=== PATIENT | male | born 1975 | race Caucasian/White ===

== ENCOUNTER 2017-07-05 18:13 | Emergency (ER) | payer MEDICARE, OTHER ==
[~2017-07-05] VITALS: Ht 188 cm; Wt 100.0 kg
[~2017-07-05 18:13] MED LIST: A+D PREVENT TOP; AMIKACIN IV; AMOXICILLIN875 MG PO; ATIVAN0.5 MG PO; ATIVAN1 M1 PO; ATIVAN1 MG PO; AUGMENTIN875 MG PO; BACLOFEN10 MG PO; BACTRIM DS1 TAB OR; BACTRIM DS1 TAB PO; BUSPIRONE10 MG PO; CEFEPIME IV; CIPRO XR500 MG PO; CIPRO500 MG OR; CIPRO500 MG PO; CIPROFLOXACN500 MG PO; DILAUDID 2MG2 MG/TAB PO; DILAUDID2 MG OR; DILAUDID2 MG PO; DOCUSATE RE; DULCOLAX10 MG RE; FLUCONAZOLE100 MG PO; FLUTICASONE50 MCG; HURRICAINE201 TOP; KEFLEX500 MG PO; KEPPRA250 M1 PO; KEPPRA500 MG PO; KLONOPIN1 MG PO; LANTISEPTIC; LANTISEPTIC EX; LORAZEPAM0.5 MG PO; LORTAB 10 PO; LORTAB 1010 MG PO; LORTAB 5 OR; METHOCARBAM750 MG PO; METHOCARBAMOL750 MG OR; METHOCARBAMOL750 MG PO; MIRTAZAPINE15 MG PO; MIRTAZAPINE45 M1 PO; NAPROSYN375 MG PO; NYSTATIN TOP; NYSTATIN100000 M1 PO; OMEPRAZOLE20 MG PO; OXYBUTYNIN5 M1 PO; OXYCODONE HCL5 MG PO; PYRIDIUM200 MG PO; ROBAXIN-750750 MG OR; ROBAXIN250 MG PO; SILVADENE1 % EX; STOOL SOFTEN1 TAB OR; TEMAZEPAM30 MG PO; TETRACYCLINE500 MG OR; TETRACYCLINE500 MG PO; THERACRAN650 MG PO; THERALITH XR PO; UROCIT-K 15 PO; VALIUM5 MG PO; VESICARE10 MG PO; VESICARE5 MG PO; XIFAXAN550 MG PO; ZANAFLEX4 M2 OR; ZANAFLEX4 MG OR; ZOLPIDEM10 M1 PO; ZOLPIDEM10 MG PO; [UNRECOGNIZED DRUG - OTHER]; [UNRECOGNIZED DRUG - OTHER] EX; [UNRECOGNIZED DRUG - REMARK]; mirtazapine PO
[2017-07-05 19:34] VITALS: BP 132/80
== END 2017-07-05 19:36 | disposition home or self-care (01) ==
LOC: ED 18:13
PROC: 0T2BX0Z Change Drainage Device in Bladder, External Approach (ICD-10-PCS; principal; 2017-07-05)
DX: T83.028A Displacement of other urinary catheter, initial encounter (principal)

== ENCOUNTER 2017-09-14 14:09 | Emergency (ER) | payer MEDICARE, OTHER ==
[~2017-09-14] VITALS: Ht 188 cm; Wt 80.0 kg
[2017-09-14 15:12] LABS: HEMATOCRIT 36.6 % (39.0-50.0); HEMOGLOBIN 11.9 g/dl (14.0-18.0); IMMATURE GRANULOCYTES 0.2 % (0.0-1.0); MEAN CELL VOLUME 85.5 fL CALC (80.0-100.0); MEAN CORPUSCULAR HGB 27.8 pG CALC (26.0-32.0); MEAN CORPUSCULAR HGB CONC 32.5 g/L CALC (32.0-36.0); NEUT# 11.13 thou/uL (1.82-7.42); RED BLOOD COUNT 4.28 mill/uL (4.70-6.10); RED CELL DISTRI WIDTH 16.6 % (11.5-15.5)
[2017-09-14 15:22] LABS: URINE BILIRUBIN - DIPSTICK NEGATIVE (NEGATIVE); URINE BLOOD DIPSTICK MODERATE (NEGATIVE); URINE COLOR YELLOW; URINE GLUCOSE - DIPSTICK NEGATIVE (NEGATIVE); URINE KETONE NEGATIVE (NEGATIVE); URINE PROTEIN - DIPSTICK 30 mg/dL (NEG-TRACE); URINE SPECIFIC GRAVITY 1.015
[2017-09-14 15:23] LABS: URINE LEUK ESTERASE MODERATE (NEGATIVE); URINE NITRITE - DIPSTICK POSITIVE (Negative)
[2017-09-14 15:24] LABS: URINE CLARITY CLOUDY
[2017-09-14 15:35] LABS: ALBUMIN 3.8 g/dL (3.2-5.0); ALKALINE PHOSPHATASE 178 u/l (38-126); ANION GAP 17 (6-22 (CALC)); BILIRUBIN, TOTAL 0.6 mg/dL (0.0-1.4); BUN 17 mg/dL (9-20); BUN/CREATININE RATIO 15 (12-20 (CALC)); CARBON DIOXIDE 23 mmol/l (22-30); CHLORIDE 106 mmol/l (95-108); CREATININE 1.2 mg/dL (0.7-1.3); GFR > 60 ML/MIN (>=60 (CALC)); GFR FOR AFR.AMER. > 60 ML/MIN (>=60 (CALC)); GLUCOSE 120 mg/dL (75-110); SGOT/AST 18 u/l (17-59); SGPT/ALT 21 u/l (21-72); SODIUM 140 mmol/l (137-146); TOTAL PROTEIN 7.2 g/dL (6.3-8.2)
[2017-09-14 16:14] LABS: URINE BACTERIA MANY hpf; URINE RBC TNTC RBC/hpf (0-5); URINE SQUAMOUS EPITHELIAL CELL FEW EPI/hpf (0-FEW); URINE WBC TNTC WBC/hpf (0-5)
[2017-09-14 16:35] VITALS: BP 98/64
[2017-09-14] MEDS ORDERED: LEVAQUIN750 MG PO (16:35)
== END 2017-09-14 16:44 | disposition home or self-care (01) ==
LOC: ED 14:09
PROVIDERS: Emergency Medicine
DX: S46.812A Strain of other muscles, fascia and tendons at shoulder and upper arm level, left arm, initial encounter (principal); N39.0 Urinary tract infection, site not specified; G82.50 Quadriplegia, unspecified; S14.109S Unspecified injury at unspecified level of cervical spinal cord, sequela; V89.2XXS Person injured in unspecified motor-vehicle accident, traffic, sequela; X58.XXXA Exposure to other specified factors, initial encounter; Z96.0 Presence of urogenital implants; B96.20 Unspecified Escherichia coli [E. coli] as the cause of diseases classified elsewhere; Z16.12 Extended spectrum beta lactamase (ESBL) resistance

== ENCOUNTER 2018-02-27 06:12 | Day surgery (SDC) | payer MEDICARE, OTHER ==
[~2018-02-27] VITALS: Ht 188 cm; Wt 70.3 kg
[~2018-02-27 06:12] MED LIST changes: +LEVAQUIN750 MG PO; +OMEPRAZOLE20 M1 PO; +RESTORIL7.5 MG PO
[2018-02-27] MEDS ORDERED: OXCARBAZEPINE150 MG PO (06:42)
[2018-02-27] MEDS ORDERED: BACTRIM DS1 TAB PO (10:44)
[2018-02-27] MEDS ORDERED: TRAMADOL HYDROC50 MG PO (10:44)
[2018-02-27] MEDS ORDERED: TAMSULOSIN0.4 MG PO (10:44)
[2018-02-27 12:18] VITALS: BP 138/88
== END 2018-02-27 12:10 | disposition home or self-care (01) ==
LOC: ORM 06:12
PROVIDERS: ATTEND Urology
PROC: 0TF4XZZ Fragmentation in Left Kidney Pelvis, External Approach (ICD-10-PCS; principal; 2018-02-27)
PROC: 0TJB8ZZ Inspection of Bladder, Via Natural or Artificial Opening Endoscopic (ICD-10-PCS; 2018-02-27)
PROC: BT1F1ZZ Fluoroscopy of Left Kidney, Ureter and Bladder using Low Osmolar Contrast (ICD-10-PCS; 2018-02-27)
PROC: 0T2BX0Z Change Drainage Device in Bladder, External Approach (ICD-10-PCS; 2018-02-27)
DX: N20.0 Calculus of kidney (principal); N32.3 Diverticulum of bladder; K21.9 Gastro-esophageal reflux disease without esophagitis; R33.9 Retention of urine, unspecified; G82.20 Paraplegia, unspecified; S14.106S Unspecified injury at C6 level of cervical spinal cord, sequela; X58.XXXS Exposure to other specified factors, sequela; Z90.5 Acquired absence of kidney; Z87.442 Personal history of urinary calculi; Z87.440 Personal history of urinary (tract) infections; Z96.0 Presence of urogenital implants; Z99.3 Dependence on wheelchair
CPT/HCPCS: Q9967

== ENCOUNTER → 2018-07-10 | Outpatient (REF) | payer MEDICARE, OTHER ==
[~2018-07-10] MED LIST changes: +OXCARBAZEPINE150 MG PO; +TAMSULOSIN0.4 MG PO; +TRAMADOL HYDROC50 MG PO
[2018-07-10 11:41] LABS: HEMATOCRIT 39.6 % (39.0-50.0); HEMOGLOBIN 12.8 g/dl (14.0-18.0); MEAN CELL VOLUME 83.9 fL CALC (80.0-100.0); MEAN CORPUSCULAR HGB 27.1 pG CALC (26.0-32.0); MEAN CORPUSCULAR HGB CONC 32.3 g/L CALC (32.0-36.0); RED BLOOD COUNT 4.72 mill/uL (4.70-6.10); RED CELL DISTRI WIDTH 14.8 % (11.5-15.5)
[2018-07-10 11:45] LABS: URINE BILIRUBIN - DIPSTICK NEGATIVE (NEGATIVE); URINE BLOOD DIPSTICK LARGE (NEGATIVE); URINE CLARITY CLOUDY; URINE COLOR YELLOW; URINE GLUCOSE - DIPSTICK NEGATIVE (NEGATIVE); URINE KETONE Negative (NEGATIVE); URINE LEUK ESTERASE LARGE (Negative); URINE NITRITE - DIPSTICK POSITIVE (Negative); URINE PH 6.5 (4.5-8.0); URINE PROTEIN - DIPSTICK TRACE mg/dL (NEG-TRACE); URINE SPECIFIC GRAVITY 1.025; URINE UROBILINOGEN - DIPSTICK 0.2 E.U./dL (0.2); URINE WBC TNTC WBC/hpf (0-5)
[2018-07-10 11:46] LABS: URINE BACTERIA MODERATE hpf; URINE EPITHELIAL CELLS RARE EPI/hpf (0-FEW)
[2018-07-10 12:20] LABS: ALBUMIN 3.6 g/dL (3.2-5.0); ALKALINE PHOSPHATASE 162 u/l (38-126); ANION GAP 14 (6-22 (CALC)); BILIRUBIN, TOTAL 0.7 mg/dL (0.0-1.4); BUN 27 mg/dL (9-20); BUN/CREATININE RATIO 22 (12-20 (CALC)); CALCULATED LDLCHOLESTEROL 117 mg/dL (62-129 (CALC)); CARBON DIOXIDE 24 mmol/l (22-30); CHLORIDE 108 mmol/l (95-108); CHOLESTEROL HDL RATIO 8.6 (<4.4 (CALC)); CREATININE 1.2 mg/dL (0.7-1.3); GFR > 60 ML/MIN (>=60 (CALC)); GFR FOR AFR.AMER. > 60 ML/MIN (>=60 (CALC)); HDL CHOLESTEROL 26 mg/dL (>=40); POTASSIUM 4.8 mmol/l (3.5-5.1); SGOT/AST 20 u/l (17-59); SODIUM 141 mmol/l (137-146); TOTAL CHOLESTEROL 221 mg/dl (0-199); TOTAL PROTEIN 7.1 g/dL (6.3-8.2); TOTAL TRIGLYCERIDES 391 mg/dl (30-149); VLDL CHOLESTROL 78 mg/dl (5-56 (CALC))
[2018-07-10 12:49] LABS: TSH, 3RD GENERATION 2.06 uIU/mL (0.47 - 4.68)
== END | disposition home or self-care (01) ==
LOC: LABSPEC 11:35
PROVIDERS: ATTEND Internal Medicine
DX: N39.0 Urinary tract infection, site not specified (principal); E78.1 Pure hyperglyceridemia; F32.9 Major depressive disorder, single episode, unspecified; B96.1 Klebsiella pneumoniae [K. pneumoniae] as the cause of diseases classified elsewhere

== ENCOUNTER 2019-07-31 05:58 | Day surgery (SDC) | payer MEDICARE, OTHER ==
[~2019-07-31 05:58] MED LIST changes: +AMITRIPTYLIN25 MG PO
[2019-07-31 09:47] VITALS: BP 153/89
== END 2019-07-31 10:00 | disposition home or self-care (01) ==
LOC: ORM 05:58
PROVIDERS: ATTEND Urology
PROC: 0TBB8ZX Excision of Bladder, Via Natural or Artificial Opening Endoscopic, Diagnostic (ICD-10-PCS; principal; 2019-07-31)
DX: N31.8 Other neuromuscular dysfunction of bladder (principal); G82.50 Quadriplegia, unspecified; S14.109S Unspecified injury at unspecified level of cervical spinal cord, sequela; V89.2XXS Person injured in unspecified motor-vehicle accident, traffic, sequela; F17.210 Nicotine dependence, cigarettes, uncomplicated; N32.89 Other specified disorders of bladder; Z93.59 Other cystostomy status; Z87.442 Personal history of urinary calculi
CPT/HCPCS: J1956

== ENCOUNTER 2020-06-27 16:07 | Emergency (ER) | payer MEDICARE, OTHER ==
[~2020-06-27] VITALS: Ht 188 cm; Wt 75.0 kg
[2020-06-27 17:21] VITALS: BP 144/82
[2020-06-27] MEDS ORDERED: BACLOFEN10 MG PO (17:27)
[2020-06-27] MEDS ORDERED: VALIUM2 MG PO (17:27)
[2020-06-27] MEDS ORDERED: CIPROFLOXACN500 MG PO (17:28)
== END 2020-06-27 17:18 | disposition home or self-care (01) ==
LOC: ED 16:07
PROC: 0T2BX0Z Change Drainage Device in Bladder, External Approach (ICD-10-PCS; principal; 2020-06-27)
DX: T83.020A Displacement of cystostomy catheter, initial encounter (principal); G82.20 Paraplegia, unspecified; F17.200 Nicotine dependence, unspecified, uncomplicated; Y84.6 Urinary catheterization as the cause of abnormal reaction of the patient, or of later complication, without mention of misadventure at the time of the procedure; Z93.3 Colostomy status

== ENCOUNTER 2020-07-14 14:40 | Emergency (ER) | payer MEDICARE, OTHER ==
[~2020-07-14] VITALS: Ht 188 cm; Wt 75.0 kg
[~2020-07-14 14:40] MED LIST changes: +VALIUM2 MG PO
[2020-07-14] MEDS ORDERED: LORAZEPAM0.5 MG PO (14:59)
[2020-07-14 17:00] VITALS: BP 115/75
== END 2020-07-14 17:00 | disposition home or self-care (01) ==
LOC: ED 14:40
PROC: 2W3RX1Z Immobilization of Left Lower Leg using Splint (ICD-10-PCS; principal; 2020-07-14)
DX: S82.302A Unspecified fracture of lower end of left tibia, initial encounter for closed fracture (principal); G82.20 Paraplegia, unspecified; F17.200 Nicotine dependence, unspecified, uncomplicated; W22.09XA Striking against other stationary object, initial encounter

== ENCOUNTER 2021-09-08 20:45 | Emergency (ER) | payer MEDICARE, OTHER | END 2021-09-08 21:00 | disposition left against medical advice (07) | LOC: ED 20:45 → LWOBS 21:00 | DX: Z53.21 Procedure and treatment not carried out due to patient leaving prior to being seen by health care provider (principal) ==

== ENCOUNTER 2021-09-19 17:02 | Emergency (ER) | payer MEDICARE, OTHER ==
[~2021-09-19] VITALS: Ht 188 cm; Wt 70.0 kg
[2021-09-19 17:48] VITALS: BP 122/90
== END 2021-09-19 17:59 | disposition home or self-care (01) ==
LOC: ED 17:02
PROC: 0T2BX0Z Change Drainage Device in Bladder, External Approach (ICD-10-PCS; principal; 2021-09-19)
DX: T83.090A Other mechanical complication of cystostomy catheter, initial encounter (principal); G82.50 Quadriplegia, unspecified; Y83.3 Surgical operation with formation of external stoma as the cause of abnormal reaction of the patient, or of later complication, without mention of misadventure at the time of the procedure; Z90.5 Acquired absence of kidney

== ENCOUNTER 2021-10-27 17:12 | Emergency (ER) | payer MEDICARE, OTHER ==
[~2021-10-27] VITALS: Ht 188 cm; Wt 68.0 kg
[2021-10-27 21:46] VITALS: BP 137/81
== END 2021-10-27 21:46 | disposition home or self-care (01) ==
LOC: ED 17:12
PROC: 0T9B30Z Drainage of Bladder with Drainage Device, Percutaneous Approach (ICD-10-PCS; principal; 2021-10-27)
DX: T83.020A Displacement of cystostomy catheter, initial encounter (principal); G82.20 Paraplegia, unspecified; Y83.3 Surgical operation with formation of external stoma as the cause of abnormal reaction of the patient, or of later complication, without mention of misadventure at the time of the procedure; Z93.3 Colostomy status

== ENCOUNTER 2021-11-28 17:17 | Emergency (ER) | payer MEDICARE, OTHER ==
[~2021-11-28] VITALS: Ht 188 cm; Wt 72.0 kg
== END 2021-11-28 22:24 | disposition home or self-care (01) ==
LOC: ED 17:17
PROC: 2W3RX1Z Immobilization of Left Lower Leg using Splint (ICD-10-PCS; principal; 2021-11-28)
DX: S82.302A Unspecified fracture of lower end of left tibia, initial encounter for closed fracture (principal); G82.50 Quadriplegia, unspecified; X50.0XXA Overexertion from strenuous movement or load, initial encounter; Y93.89 Activity, other specified; Y92.007 Garden or yard of unspecified non-institutional (private) residence as the place of occurrence of the external cause; Z99.3 Dependence on wheelchair; Z93.50 Unspecified cystostomy status; Z93.3 Colostomy status; Z90.5 Acquired absence of kidney

== ENCOUNTER 2023-04-08 13:36 | Emergency (ER) | payer MEDICARE, OTHER ==
[~2023-04-08] VITALS: Ht 188 cm; Wt 74.0 kg
[2023-04-08 14:25] VITALS: BP 90/55
== END 2023-04-08 14:42 | disposition home or self-care (01) ==
LOC: ED 13:36
DX: S61.206A Unspecified open wound of right little finger without damage to nail, initial encounter (principal); G82.50 Quadriplegia, unspecified; X58.XXXA Exposure to other specified factors, initial encounter; Z90.5 Acquired absence of kidney; Z93.3 Colostomy status; Z93.51 Cutaneous-vesicostomy status

== ENCOUNTER 2024-03-31 13:29 | Emergency (ER) | payer MEDICARE, OTHER ==
[~2024-03-31] VITALS: Ht 188 cm; Wt 72.0 kg
[2024-03-31] MEDS ORDERED: BACLOFEN20 MG PO (14:07)
[2024-03-31] MEDS ORDERED: LORTAB 1010 MG PO (14:09)
[2024-03-31 15:47] VITALS: BP 137/91
== END 2024-03-31 16:06 | disposition home or self-care (01) ==
LOC: ED 13:29
PROC: 0T2BX0Z Change Drainage Device in Bladder, External Approach (ICD-10-PCS; principal; 2024-03-31)
DX: T83.030A Leakage of cystostomy catheter, initial encounter (principal); G82.50 Quadriplegia, unspecified; Y83.3 Surgical operation with formation of external stoma as the cause of abnormal reaction of the patient, or of later complication, without mention of misadventure at the time of the procedure; Z93.6 Other artificial openings of urinary tract status; Z93.3 Colostomy status

== ENCOUNTER 2024-04-02 12:24 | Emergency (ER) | payer MEDICARE, OTHER ==
[~2024-04-02] VITALS: Ht 188 cm; Wt 90.7 kg
[~2024-04-02 12:24] MED LIST changes: +BACLOFEN20 MG PO
[2024-04-02 13:35] VITALS: BP 135/76
== END 2024-04-02 13:41 | disposition home or self-care (01) ==
LOC: ED 12:24
DX: Z43.5 Encounter for attention to cystostomy (principal); N20.0 Calculus of kidney; G82.50 Quadriplegia, unspecified; F17.200 Nicotine dependence, unspecified, uncomplicated; Z90.5 Acquired absence of kidney; Z93.3 Colostomy status; Z93.6 Other artificial openings of urinary tract status

== ENCOUNTER 2024-09-11 18:19 | Emergency (ER) | payer MEDICARE, OTHER ==
[~2024-09-11] VITALS: Ht 188 cm; Wt 81.6 kg
[2024-09-11] VITALS (12 sets, daily range): BP systolic 91–133; BP diastolic 64–101
== END 2024-09-11 23:34 | disposition home or self-care (01) ==
LOC: ED 18:19
PROC: 0T2BX0Z Change Drainage Device in Bladder, External Approach (ICD-10-PCS; principal; 2024-09-11)
DX: T83.020A Displacement of cystostomy catheter, initial encounter (principal); Y83.3 Surgical operation with formation of external stoma as the cause of abnormal reaction of the patient, or of later complication, without mention of misadventure at the time of the procedure; G82.50 Quadriplegia, unspecified; F17.200 Nicotine dependence, unspecified, uncomplicated

== ENCOUNTER 2024-09-30 20:11 | Emergency (ER) | payer MEDICARE, OTHER ==
[~2024-09-30] VITALS: Ht 188 cm; Wt 74.0 kg
[2024-09-30 21:25] VITALS: BP 150/90
== END 2024-09-30 21:25 | disposition home or self-care (01) ==
LOC: ED 20:11
PROC: 0T2BX0Z Change Drainage Device in Bladder, External Approach (ICD-10-PCS; principal; 2024-09-30)
DX: T83.090A Other mechanical complication of cystostomy catheter, initial encounter (principal); G82.50 Quadriplegia, unspecified; F17.200 Nicotine dependence, unspecified, uncomplicated; Y83.3 Surgical operation with formation of external stoma as the cause of abnormal reaction of the patient, or of later complication, without mention of misadventure at the time of the procedure